=== PATIENT | female | born 1995 | race Hispanic/Latino ===

== ENCOUNTER 2021-11-25 07:52 | Emergency (ER) | payer SELFPAY ==
[~2021-11-25] VITALS: Ht 154.9 cm; Wt 84.8 kg
[2021-11-25] MEDS ORDERED: KETOROLAC TROMETHAMINE 30 MG/ML VIAL IV STA (09:21)
[2021-11-25] MEDS ORDERED: KETOROLAC TROMETHAMINE 30 MG/ML VIAL ONE (09:25)
[2021-11-25] MEDS ORDERED: SODIUM CHLORIDE 0.9% 1000ML 1,000 ML ONE (09:25)
[2021-11-25] MEDS ORDERED: SODIUM CHLORIDE 0.9% 1000ML 1,000 ML IV SCH (09:30)
[2021-11-25] MEDS ORDERED: IOPAMIDOL 370 MG/ML 200 ML INFUS..BTL INJ ONE (09:36)
[2021-11-25] MEDS ORDERED: SODIUM CHLORIDE 0.9% 50ML 0 ML ONE (09:36)
[2021-11-25] MEDS ORDERED: NAPROSYN500 MG PO (10:38)
== END 2021-11-25 11:07 | disposition home or self-care (01) ==
LOC: FSED 08:19
DX: M54.50 Low back pain, unspecified (principal); R10.12 Left upper quadrant pain
CPT/HCPCS: 74176; 80048; 80076; 81003; 81025; 85025; 99284; J1885; J7030; Q9967

== ENCOUNTER 2024-05-27 18:56 | Emergency (ER) | payer MEDICARE ==
[~2024-05-27] VITALS: Ht 154.9 cm; Wt 79.4 kg
[~2024-05-27 18:56] MED LIST: NAPROSYN500 MG PO; PEPCID20 MG PO
[2024-05-27 19:15] VITALS: PULSE 125; RESP 18; TEMP 99.2; O2SAT 97
[2024-05-27] MEDS ORDERED: TYLENOL325 MG PO (19:26)
[2024-05-27] MEDS ORDERED: IBUPROFEN200 MG PO (19:26)
[2024-05-27] MEDS ORDERED: DICLOXACILLIN500 MG PO (19:26)
[2024-05-27] MEDS: CEFTRIAXONE 1 GM VIAL IM ONE (19:44)
== END 2024-05-27 19:45 | disposition home or self-care (01) ==
LOC: FSED 19:07
DX: R50.9 Fever, unspecified (principal); O91.23 Nonpurulent mastitis associated with lactation; R00.0 Tachycardia, unspecified; Z11.52 Encounter for screening for COVID-19
CPT/HCPCS: 0223U; 83518; 87400; 99283; J0696

== ENCOUNTER 2024-07-08 12:05 | Emergency (ER) | payer MEDICARE ==
[~2024-07-08] VITALS: Ht 154.9 cm; Wt 81.4 kg
[~2024-07-08 12:05] MED LIST changes: +DICLOXACILLIN500 MG PO; +IBUPROFEN200 MG PO; +TYLENOL325 MG PO
[2024-07-08] MEDS ORDERED: BACTRIM DS TAB1 EACH PO (13:02)
[2024-07-08 13:12] VITALS: PULSE 95; RESP 18; TEMP 98.7; O2SAT 98
[2024-07-08] MEDS: CEFTRIAXONE 1 GM VIAL IM ONE (13:15)
== END 2024-07-08 13:37 | disposition home or self-care (01) ==
LOC: FSED 12:08
DX: O91.23 Nonpurulent mastitis associated with lactation (principal)
CPT/HCPCS: 96372; 99283; J0696